=== PATIENT | female | born 1995 | race American Indian/Alaskan Native ===

== ENCOUNTER 2022-03-09 00:14 | Emergency (ER) | payer SELFPAY ==
[2022-03-09 01:52] VITALS: BP 145/100
== END 2022-03-09 07:45 | disposition left against medical advice (07) ==
LOC: ED 00:14
DX: S01.81XA Laceration without foreign body of other part of head, initial encounter (principal); Z53.21 Procedure and treatment not carried out due to patient leaving prior to being seen by health care provider; X58.XXXA Exposure to other specified factors, initial encounter; Y93.89 Activity, other specified; Y92.89 Other specified places as the place of occurrence of the external cause; Y99.8 Other external cause status